=== PATIENT | male | born 1985 | race African-American/Black ===

== ENCOUNTER 2017-05-04 10:59 | Emergency (ER) | payer SELFPAY ==
[~2017-05-04] VITALS: Ht 188 cm; Wt 100.0 kg
[2017-05-04 11:18] VITALS: BP 143/71
--- NOTE | 2017-05-04 12:11 | PHYS DOC ---
General Chief Complaint: SORE THROAT Stated Complaint: SORE THROAT Time Seen by MD: 11:24 Source: patient Exam Limitations: no limitations Problems: History of Present Illness Initial Comments Patient is a 31-year-old male who comes to the ED complaining of sore throat. Patient states that he's had a sore throat since yesterday. He says that overnight he felt like his throat was swelling and his nose was congested and complains that he had difficulty breathing. He is able to drink liquids but has not eaten due to the pain. He's had some chills and sweats but no measured fevers. He works in a [employer] and feels that would further worsen his symptoms. He has no ongoing medical problems he does smoke cigarettes takes no daily medications and has no allergies. Emergency department vitals are normal. Timing/Duration: yesterday Severity: severe Location: throat Prearrival Treatment: over the counter meds Modifying Factors: worse with coughing Associated Symptoms: poor solids intake, sore throat Allergies: Coded Allergies: No Known Drug Allergies (Unverified , 05/04/17) Past Medical History Medical History: no pertinent history Surgical History: noncontributory Social History Smoker: cigarettes Alcohol: occasionally Drugs: none Constitutional: chills, denies diaphoresis, denies fever, malaise Ears: denies dizziness, denies pain, denies tinnitus Nose: denies clots, congestion, denies epistaxis Throat: see HPI, denies neck stiffness, denies difficulty with fluids Respiratory: see HPI Cardiovascular: denies chest pain, denies palpitations Gastrointestinal: denies diarrhea, denies nausea, denies vomiting Musculoskeletal: denies back pain, denies neck pain Skin: denies rash Neurological: denies headache, denies numbness, denies paresthesia Physical Exam General Appearance: WD/WN, no apparent distress Eyes: bilateral eye normal inspection, bilateral eye PERRL, bilateral eye EOMI Ears: bilateral ear auricle normal, bilateral ear canal normal, bilateral ear TM normal Nose: normal inspection Mouth/Throat: other (pharynx is beefy red with exudate, no uvula or other soft tissue swelling noted the airway is patent) Neck: supple (tender reactive lymphadenopathy bilaterally), trachea midline Cardiovascular/Respiratory: normal breath sounds, no respiratory distress 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 Departure Time of Disposition: 12:09 Disposition: 01 HOME, SELF-CARE Diagnosis: pharyngitis Condition: STABLE Patient Instructions: Viral and Bacterial Pharyngitis, [id number] Additional Instructions: Off work through this note given. Aggressive hydration with Gatorade and water. [id number] Tylenol, ibuprofen, and analgesic throat sprays as needed. Prescription: Bactrim DS, prednisone Follow-up with in 2-3 days for recheck. Stop smoking seek medical assistance if necessary. Return to ED with new or changing symptoms. JESÚS FRANCO DO May 04, 2017 12:11
[2017-05-04] MEDS ORDERED: SULF1TAB24 PO (12:12)
[2017-05-04] MEDS ORDERED: PRED20TA PO (12:12)
[2017-05-04] MEDS ORDERED: predniSONE 20 MG TABLET PO ONE (12:30)
== END 2017-05-04 12:28 | disposition home or self-care (01) ==
LOC: ER 10:59
DX: J02.9 Acute pharyngitis, unspecified (principal); R09.81 Nasal congestion; R06.00 Dyspnea, unspecified; F17.210 Nicotine dependence, cigarettes, uncomplicated
CPT/HCPCS: 87070; 87880; 99283; J7512

== ENCOUNTER 2017-05-19 09:07 | Emergency (ER) | payer SELFPAY ==
[~2017-05-19] VITALS: Ht 188 cm; Wt 99.8 kg
[~2017-05-19 09:07] MED LIST: PRED20TA PO; SULF1TAB24 PO
--- NOTE | 2017-05-19 09:19 | PHYS DOC ---
Past History Past Medical History: No Pertinent History Past Surgical History: No Surgical History Alcohol Use: None Drug Use: None Adult General Chief Complaint Chief Complaint: HEADACHE HPI HPI Patient is a 31 year old M who presents with sinus pressure. He states that he has nasal congestion and drainage with postnasal drip over the past 2-3 days. He denies fever or sweats chills or flulike symptoms. He has no other associated signs or symptoms. His no other exacerbating or relieving factors. Review of Systems Review of Systems Constitutional: Denies fever or chills [] Eyes: Denies change in visual acuity, redness, or eye pain [] HENT: Negative except history of present illness Respiratory: Negative except history of present illness Cardiovascular: No additional information not addressed in HPI [] GI: Denies abdominal pain, nausea, vomiting, bloody stools or diarrhea [] : Denies dysuria or hematuria [] Musculoskeletal: Denies back pain or joint pain [] Integument: Denies rash or skin lesions [] Neurologic: Denies focal weakness or sensory changes [] Endocrine: Denies polyuria or polydipsia [] Family History Family History Noncontributory Current Medications Current Medications Medications were reviewed Allergies Allergies Allergies Coded Allergies Type Severity Reaction Last Updated Verified No Known Drug Allergies 05/04/17 No Physical Exam Physical Exam Constitutional: Well developed, well nourished, no acute distress, non-toxic appearance. [] HENT: Normocephalic, atraumatic, moderate nasal congestion bilaterally with moderate mucus Eyes: PERRLA, EOMI, conjunctiva normal, no discharge. [] Neck: Normal range of motion, no tenderness, supple, no stridor. [] Cardiovascular:Heart rate regular rhythm, no murmur [] Lungs & Thorax: Bilateral breath sounds clear to auscultation [] Abdomen: Bowel sounds normal, soft, no tenderness, no masses, no pulsatile masses. [] Skin: Warm, dry, no erythema, no rash. [] Back: No tenderness, no CVA tenderness. [] Extremities: No tenderness, no cyanosis, no clubbing, ROM intact, no edema. [] Neurologic: Alert and oriented X 3, normal motor function, normal sensory function, no focal deficits noted. [] Psychologic: Affect normal, judgement normal, mood normal. [] Current Patient Data Vital Signs Normal vital signs please refer to nursing documentation for specifics Course & Med Decision Making Course & Med Decision Making Pertinent Labs and Imaging studies reviewed. (See chart for details) Dragon Disclaimer Dragon Disclaimer This chart was dictated in whole or in part using Voice Recognition software in a busy, high-work load, and often noisy Emergency Department environment. It may contain unintended and wholly unrecognized errors or omissions. Departure Departure: Impression: Primary Impression: URI (upper respiratory infection) Disposition: 01 HOME, SELF-CARE Condition: STABLE Referrals: PCP,NO (PCP) Patient Instructions: Upper Respiratory Infection, Adult Additional Instructions: Steve was seen in the emergency room for sinus congestion. No emergency medical condition was found on history or physical exam. His symptoms were most consistent with upper respiratory infection. He was given education regarding signs and symptoms of bacterial sinusitis and was advised to seek medical care as soon as possible for further management if he develops new or worsening symptoms. He was strongly advised to use regular nasal saline rinses and was given a prescription for nasal steroid spray. He was advised to follow-up with his primary care doctor in the next 3-5 days for further management Scripts Fluticasone Propionate (Flonase Allergy Relief) 9.9 Ml Mcgraw.susp 1 SPRAYS NS BID for 7 Days, BOTTLE Prov: FUNMI OLIVER MD 05/19/17 Problem Qualifiers Primary Impression: URI (upper respiratory infection) URI type: unspecified viral URI Qualified Codes: J06.9 - Acute upper respiratory infection, unspecified; B97.89 - Other viral agents as the cause of diseases classified elsewhere FUNMI OLIVER MD May 19, 2017 09:19
[2017-05-19] MEDS ORDERED: KETOROLAC 60 MG/2 ML VIAL. IM ONE (09:45)
[2017-05-19] MEDS ORDERED: FLUT9.9S NS (09:46)
[2017-05-19 10:04] VITALS: BP 135/82
== END 2017-05-19 10:04 | disposition home or self-care (01) ==
LOC: ER 09:07
DX: J06.9 Acute upper respiratory infection, unspecified (principal)
CPT/HCPCS: 96372; 99283; J1885